=== PATIENT | female | born 1985 | race Caucasian/White ===

== ENCOUNTER 2017-03-05 17:25 | Emergency (ER) | payer OTHER ==
--- NOTE | 2017-03-05 19:03 | DIAGNOSTIC IMAGING REPORT ---
PROCEDURE: CT ABD/PELVIS WITH CONTRAST INDICATION: Abdominal pain. Hematochezia. History of IUD TECHNIQUE: 125 ml of Isovue 300 were injected intravenously and axial images were obtained of the entire abdomen and pelvis with sagittal and coronal reformations. COMPARISON: None. FINDINGS: ABDOMEN: Gallbladder, liver, spleen, pancreas, kidneys, and aorta are normal. Bowel pattern is normal, including appendix. There are mild degenerate changes of the lumbar spine. PELVIS: T-shaped IUD within the endometrial canal (satisfactory position). Uterus and adnexal structures are otherwise normal. No evidence of free fluid. IMPRESSION: 1. T-shaped IUD in satisfactory position. 2. Normal appendix. 3. Otherwise negative CT abdomen and pelvis. 4. Findings discussed with BRANDAN Hess. All CT scans at this facility use dose modulation, iterative reconstruction, and/or weight-based dosing when appropriate to reduce radiation dose to as low as reasonably achievable.
--- NOTE | 2017-03-05 20:05 | ED ORDER SUMMARY ---
..... Patient: SUSAN VARGAS OrderSheet [facility] VisitID: [id number] [address] [place] [address] 31y, F Registration Date/Time: 03/05/2017 ORDER SHEET Weight: 78.9 kg (stated) Allergies: No Known Drug Allergy GENERAL ORDERS: CT Abd/Pel w Cont (No) (pending) Urgent (18:24 03/05/2017 HBivens A.R.N.P.) (Ack 18:28 KHoerner) (18:52 KHoerner) CBC w Diff Urgent (18:03/05/2017 HBivens A.R.N.P.) (Ack 18:28 KHoerner) (18:33 EHassan R.N.) CMP Urgent (18:03/05/2017 HBivens A.R.N.P.) (Ack 18:28 KHoerner) (18:33 EHassan R.N.) UA-Culture if indicated Urgent (18:24 03/05/2017 HBivens A.R.N.P.) (Ack 18:28 KHoerner) (18:33 EHassan R.N.) Amylase Urgent (18:24 03/05/2017 HBivens A.R.N.P.) (Ack 18:28 KHoerner) (18:33 EHassan R.N.) Lipase Urgent (18:03/05/2017 HBivens A.R.N.P.) (Ack 18:28 KHoerner) (18:33 EHassan R.N.) Serum Qualitative Urgent (18:03/05/2017 HBivens A.R.N.P.) (Ack 18:28 KHoerner) (18:33 EHassan R.N.) MEDICATION ORDERS: IV FLUIDS: Toradol IV 30 mg (NOW) (18:24 03/05/2017 HBivens A.R.N.P.) (18:37 EHassan R.N.) IV Saline Lock (18:03/05/2017 HBivens A.R.N.P.) (18:33 EHassan R.N.) ORDER SHEET NOTES: [Electronically signed by Kevin Bello R.N. (20:18 03/05/2017)] [Electronically signed by Jayda Vallecillo (22:13 03/05/2017)] [Electronically locked/signed by Kevin Bello R.N. (20:18 03/05/2017)]
--- NOTE | 2017-03-05 20:05 | ED NURSING NOTES ---
Clinical Report - Nurses [facility] [address] [place] [address] 03/05/2017 17:26 Patient: SUSAN VARGAS TRIAGE Triage time 1809 PM. Acuity: LEVEL 3. Chief Complaint: ABDOMINAL PAIN. Alert. No acute distress. SEPSIS SCREEN: Sepsis Screen. Negative (no infection suspected/documented). --18:22 Jocelyn Caceres R.N. 18:09 03/05/17. BP: 145/72 (regular adult cuff) taken on the left arm, via an automated monitor, while lying. HR: 74. RR: 17. O2 saturation: 100% on room air. Temp: 98.3 F (oral). Pain level now: 6/10. --18:22 Jocelyn Caceres R.N. Weight: 78.9 kg stated. Height/Length: 66 inches Per Patient. BMI: 28.1. --18:15 Jocelyn Caceres R.N. Medications Albuterol Sulfate Inhalation, as needed. --18:24 Jocelyn Caceres R.N. Allergies No Known Drug Allergy. --18:17 Jocelyn Caceres R.N. Medication/allergy information source: the patient. --18:22 Jocelyn Caceres R.N. History Arrived by private vehicle. Historian: family. Primary physician ([facility]). ( Pt states that went to [facility] walk in due to sudden left quadrant pain, with blood in the stool noted for 2 days (not today), denies vomiting, fever, diarrhea, constipation. Clinic told her that she was positive for blood in the stool and needed to follow up with GI doctor on and a colonoscopy to follow. Pt states that she called her doctor at [facility] and was told to come to ED for further evaluation.). The patient has had abdominal pain. No nausea, vomiting, diarrhea, constipation or fever. Treatment TRANSMISSION CALIBRATION ENGINEER: None. PAST MEDICAL HX: Immunizations: up-to-date. 1. Para 1. Sexual history - sexually active. Uses an intrauterine device. SOCIAL HX: Light tobacco smoker- less than 1/2 a pack per day. Occasional alcohol use. No drug use. No recent travel. No infectious disease exposure. No known contact with a sick individual. ABUSE ASSESSMENT: No report of abuse. SELF HARM ASSESSMENT: A self harm assessment was performed. The patient answered "no" to the question "Do you have thoughts of harming or killing yourself?" and "Have you recently had thoughts about harming or killing others?". FALL RISK ASSESSMENT: Fall risk assessment completed. No fall risk identified. NUTRITIONAL RISK ASSESSMENT: The nutritional risk assessment revealed no deficiencies. FUNCTIONAL ASSESSMENT: Functional assessment: no impairments noted. LEARNING NEEDS ASSESSMENT: The learning needs assessment revealed no barriers. SKIN INTEGRITY ASSESSMENT: Skin integrity risk assessment completed. No skin integrity risk identified. --18:22 Jocelyn Caceres R.N. PROBLEMS: Asthma. Herpes Genitalis. --18:25 Jocelyn Caceres R.N. ADDITIONAL SURGERIES: no known surgeries. Interventions ID band on patient. --18:22 Jocelyn Caceres R.N. PHYSICAL ASSESSMENT Ambulatory to room. GENERAL / NEURO / PSYCH: Oriented X 4. Appears in pain. HEENT: Mucous membranes are pink. RESPIRATORY: Respirations not labored. Breath sounds within normal limits. CVS: Capillary refill less than 2 seconds. GI / : Abdominal tenderness in the right lower quadrant. Guarding and rebound tenderness present. Rebound tenderness. Bowel sounds within normal limits. No urethral discharge or vaginal discharge. Blood present in the stool, as gross blood. as per smokey point. SKIN: Skin is warm and dry. --18:23 Jocelyn Caceres R.N. NURSING PROGRESS NOTES The initial plan of care for this patient has been created This plan of care was discussed with the patient and family. Patient gowned. Warming measures: blanket applied. Reassurance given. Patient identifiers checked. Call light placed in reach. Side rails up x 1. Bed placed in lowest position. --18:25 Jocelyn Caceres R.N. 18:32 03/05/2017 Site #1 started via IV in the left antecubital space with an 20g angiocath; one attempt. Blood drawn: rainbow set. Labeled in the presence of the patient and sent to the lab. --18:32 Jocelyn Caceres R.N. 18:37 03/05/2017 Toradol IVP 30 mg given over 30 second(s) via site #1. Allergies verified and confirmed 5 rights. IV patency established. IV site checked: no pain, redness, or swelling. IV flushed thoroughly pre- and post-medication administration. IVP given by RN. --18:37 Jocelyn Caceres R.N. 20:15. The patient is calm and resting quietly. SKIN: Skin is warm and dry. Skin color within normal limits. --20:17 Kevin Bello R.N. DISPOSITION / DISCHARGE 20:10 03/05/2017 Site #1 removed upon discharge. Catheter intact. Bandage applied. --20:16 Kevin Bello R.N. Departure time: 20:17. Condition at departure: stable. No learning barriers present. Reviewed medication(s) side effects, precautions, dosing and course information. Prescription(s) given to the patient. Patient verbalized understanding. Written instructions provided in [place]. The patient was discharged home and unaccompanied at time of discharge. She left the Emergency Department ambulatory and via private vehicle. Patient driving. FALL RISK ASSESSMENT: Fall risk assessment completed. No fall risk identified. --20:17 Kevin Bello R.N. 20:12 03/05/17. BP: 138/74. HR: 83. RR: 17. O2 saturation: 97%. Pain level now: 12/28. --20:17 Kevin Bello R.N. Locked/Released at 03/05/2017 20:18 by Kevin Bello R.N.
--- NOTE | 2017-03-05 20:05 | ED CLINICAL REPORT ---
Clinical Report - Physicians/Mid Levels [facility] [address] [place] [address] 03/05/2017 17:26 Patient: SUSAN VARGAS Time Seen: 18:11; initial patient contact, initial documentation, patient care assumed. Arrived- By private vehicle. Historian- patient. HISTORY OF PRESENT ILLNESS Chief Complaint: ABDOMINAL PAIN. This started last night and is still present. At its maximum, severity described as moderate. When seen in the E.D., severity described as moderate. Modifying factors. Not worsened by anything. Not relieved by anything. It is described as "pain", sharp and cramping. No radiation. It is described as located in the right lower quadrant. No nausea, loss of appetite, vomiting or diarrhea. No recent travel. Similar symptoms previously: None. Recent medical care: The patient was seen recently in a clinic. ( went to walk in clinic yesterday for blood streaked stool, none since, has appt on Th with gi and pending colonscopy). REVIEW OF SYSTEMS No constipation, black stools, hematemesis, difficulty with urination or pain with urination. No urinary frequency, bloody stools, fever, chest pain or difficulty breathing. All systems otherwise negative, except as recorded above. PAST HISTORY See nurses notes. PROBLEMS: Asthma. Herpes Genitalis. --18:25 Jocelyn Caceres, R.N. ADDITIONAL SURGERIES: no known surgeries. SOCIAL HISTORY Light tobacco smoker. Occasional alcohol use. No drug use. No recent travel. Is a local resident. FAMILY HISTORY Negative. ADDITIONAL NOTES The nursing notes have been reviewed with agreement regarding the chief complaint, HPI, ROS, PMH and patient medications and allergies. PHYSICAL EXAM Vital Signs: 03/05/2017 18:09 BP: 145/72. HR: 74. RR: 17. O2 saturation: 100%. Temp: 98.3 F. Pain level now: 6/10. Have been reviewed as normal and appear to be correct. Appearance: Alert. Oriented X3. No acute distress. Eyes: Pupils equal, round and reactive to light. Eyes normal inspection. Neck: Normal inspection. Neck supple. CVS: Normal heart rate and rhythm. Heart sounds normal. Pulses normal. Respiratory: No respiratory distress. Breath sounds normal. Chest nontender. Abdomen: Soft. Mild tenderness in the right lower quadrant. No guarding, rebound tenderness or Pandya's, obturator or psoas sign present. Bowel sounds normal. No organomegaly. No mass. Tenderness present. Back: Normal inspection. Skin: Skin warm and dry. Normal skin color. No rash. Normal skin turgor. Extremities: Extremities exhibit normal ROM. No lower extremity edema. Neuro: Oriented X 3. No motor deficit. No sensory deficit. LABS, X-RAYS, AND EKG Abdominal CT: No acute disease. IMPRESSION: 1. T-shaped IUD in satisfactory position. 2. Normal appendix. 3. Otherwise negative CT abdomen and pelvis. 4. Findings discussed with BRANDAN Hess. All CT scans at this facility use dose modulation, iterative reconstruction, and/or weight-based dosing when appropriate to reduce radiation dose to as low as reasonably achievable. Electronically Final signed by:Robert Escobedo MD 03/05/2017 6:58:56 PM. The study was interpreted by the radiologist and discussed with the radiologist. Interpretation time: 1901. Laboratory Tests: UA-Culture if indicated: (RUTHIE: 03/05/2017 18:10) ( MsgRcvd 03/05/2017 19:22) Final results Test Result Flag Units (Reference) URINE COLOR YELLOW URINE APPEARANCE CLEAR URINE GLUCOSE NEGATIVE (NEGATIVE) URINE BILIRUBIN NEGATIVE (NEGATIVE) URINE KETONE NEGATIVE (NEGATIVE) URINE SPECIFIC GRAVITY 1.010 (1.010-1.030) URINE PH 8.5 H (5.0-8.0) URINE PROTEIN NEGATIVE (NEGATIVE) URINE UROBILINOGEN 0.2 EU/dL (0.2-1.0) URINE NITRITE NEGATIVE (NEGATIVE) URINE BLOOD NEGATIVE (NEGATIVE) URINE LEUK ESTERASE NEGATIVE (NEGATIVE) URINE RBC NONE SEEN rbc/hpf (0-1) URINE WBC RARE wbc/hpf (0-1) URINE EPITHELIAL CELLS 0-1 EPI/hpf (0-5) URINE BACTERIA TRACE (<1+) (NONE SEEN) URINE COMMENT CULT NOT INDICATED 1+ AMORPHUSURINE CULTURES ARE SET-UP BASED ON THE FOLLOWING CRITERIA:POSITIVE NITRITEPOSITIVE LEUKOCYTE ESTERASEGREATER THAN 10 WHITE BLOOD CELLSMODERATE (2+) OR GREATER BACTERIA Serum Qualitative: (RUTHIE: 03/05/2017 18:35) ( [facility] 19:06) Final results Test Result Flag Units (Reference) , SERUM NEGATIVE CBC w Diff: (RUTHIE: 03/05/2017 18:35) ( [facility] 03/05/2017 18:51) Final results Test Result Flag Units (Reference) WHITE BLOOD COUNT 11.9 H K/uL (4.5-11.5) RED BLOOD COUNT 4.92 M/uL (4.00-5.20) HEMOGLOBIN 15.1 gm/dL (12.0-16.0) HEMATOCRIT 44.7 % (36.0-46.0) MEAN CELL VOLUME 91 fL (80-100) MEAN CORPUSCULAR HGB 31 pg (26-34) MEAN CORPUSCULAR HGB CONC 34 g/dL (31-37) RED CELL DISTRIBUTION WIDTH 13.4 % (11.6-14.8) PLATELET COUNT 277 K/uL (150-400) NEUTROPHIL % 74.1 % (50-75) LYMPH % 20.0 L % (25-40) MONO % 4.7 % (3-14) EOSINOPHIL % 0.9 % (0-4) BASOPHIL % 0.3 % (0-2) CMP: (RUTHIE: 03/05/2017 18:35) ( [facility] 03/05/2017 19:10) Final results Test Result Flag Units (Reference) GLUCOSE 96 mg/dL (70-110) BUN 12 mg/dL (7-18) CREATININE 0.8 mg/dL (0.6-1.3) Estimated GFR >60 mL/min Estimated GFR- >60 mL/min Note: Persistent reduction over 3 months in eGFR<60 mL/min/1.73 m2 defines CKD. Patients with eGFR values>=60 mL/min/1.73 m2 may also have CKD if evidence ofpersistent proteinuria. Additional information may be foundat www.kidney.org. SODIUM 139 mmol/L (136-145) POTASSIUM 3.7 mmol/L (3.5-5.1) CHLORIDE 103 mmol/L (98-107) CARBON DIOXIDE 26 mmol/L (21-32) CALCIUM 8.3 L mg/dL (8.5-10.1) TOTAL PROTEIN 7.2 g/dL (6.4-8.2) ALBUMIN 3.7 g/dL (3.3-5.0) BILIRUBIN, TOTAL 0.3 mg/dL (0.0-1.0) ALKALINE PHOSPHATASE 62 U/L (46-116) AST (SGOT) 19 U/L (15-37) ALT (SGPT) 33 U/L (12-78) LIPASE 215 U/L (73-393) AMYLASE 64 U/L (25-115) . PROGRESS AND PROCEDURES Patient counseled in person regarding the patient's stable condition, test results and diagnosis. 20:02. Differential Diagnosis: I considered gastritis, gastroenteritis, peptic ulcer disease, acute appendicitis, mesenteric lymphadenitis, diverticulitis, colon cancer, ulcerative colitis, Crohn's disease, biliary colic, cholecystitis, cholelithiasis, hepatitis, pancreatitis, common bile duct obstruction, urinary tract infection, ureterolithiasis, ovarian cyst, ovarian torsion, , pelvic inflammatory disease, pelvic abscess, endometriosis and viral syndrome as a possible cause of abdominal pain in this patient. This is a partial list of diagnoses considered. Above considerations are based on history, physical exam, reassessment, laboratory data and other information. Differential diagnosis was discussed with patient. Disposition: Discharged home in good and improved condition (20:04). Condition: good and stable. CLINICAL IMPRESSION Acute right lower quadrant abdominal pain of unknown cause. INSTRUCTIONS Warnings: GENERAL WARNINGS: Return or contact your physician immediately if your condition worsens or changes unexpectedly, if not improving as expected, or if other problems arise. SPECIFICALLY, return if you develop pain in the abdomen or pelvis, fever, vomiting, the inability to keep fluids down, blood in vomitus, blood in diarrhea, fainting, lightheadedness or vaginal bleeding. Prescription Medications: Ultram 50 mg tablets: take 1-2 orally every 6 hours as needed for pain. Dispense twenty (20). No refills. Substitution is permissible. Follow-up: Follow up with your doctor in about two days as scheduled even if well. Summary of care provided to patient. Understanding of the discharge instructions verbalized by patient. (Electronically signed by Jayda Vallecillo A.R.N.P. 03/05/2017 22:13)
--- NOTE | 2017-03-05 20:05 | ED ORDER SUMMARY ---
..... Patient: SUSAN VARGAS OrderSheet [facility] VisitID: [id number] [address] [place] [address] 31y, F Registration Date/Time: 03/05/2017 ORDER SHEET Weight: 78.9 kg (stated) Allergies: No Known Drug Allergy GENERAL ORDERS: CT Abd/Pel w Cont (No) (pending) Urgent (18:24 03/05/2017 HBivens A.R.N.P.) (Ack 18:28 KHoerner) (18:52 KHoerner) CBC w Diff Urgent (18:03/05/2017 HBivens A.R.N.P.) (Ack 18:28 KHoerner) (18:33 EHassan R.N.) CMP Urgent (18:03/05/2017 HBivens A.R.N.P.) (Ack 18:28 KHoerner) (18:33 EHassan R.N.) UA-Culture if indicated Urgent (18:24 03/05/2017 HBivens A.R.N.P.) (Ack 18:28 KHoerner) (18:33 EHassan R.N.) Amylase Urgent (18:24 03/05/2017 HBivens A.R.N.P.) (Ack 18:28 KHoerner) (18:33 EHassan R.N.) Lipase Urgent (18:03/05/2017 HBivens A.R.N.P.) (Ack 18:28 KHoerner) (18:33 EHassan R.N.) Serum Qualitative Urgent (18:03/05/2017 HBivens A.R.N.P.) (Ack 18:28 KHoerner) (18:33 EHassan R.N.) MEDICATION ORDERS: IV FLUIDS: Toradol IV 30 mg (NOW) (18:24 03/05/2017 HBivens A.R.N.P.) (18:37 EHassan R.N.) IV Saline Lock (18:03/05/2017 HBivens A.R.N.P.) (18:33 EHassan R.N.) ORDER SHEET NOTES: [Electronically signed by Kevin Bello R.N. (20:18 03/05/2017)] [Electronically signed by Jayda Vallecillo (22:13 03/05/2017)] [Electronically locked/signed by Kevin Bello R.N. (20:18 03/05/2017)]
--- NOTE | 2017-03-05 20:05 | ED NURSING NOTES ---
Clinical Report - Nurses [facility] [address] [place] [address] 03/05/2017 17:26 Patient: SUSAN VARGAS TRIAGE Triage time 1809 PM. Acuity: LEVEL 3. Chief Complaint: ABDOMINAL PAIN. Alert. No acute distress. SEPSIS SCREEN: Sepsis Screen. Negative (no infection suspected/documented). --18:22 Jocelyn Caceres R.N. 18:09 03/05/17. BP: 145/72 (regular adult cuff) taken on the left arm, via an automated monitor, while lying. HR: 74. RR: 17. O2 saturation: 100% on room air. Temp: 98.3 F (oral). Pain level now: 6/10. --18:22 Jocelyn Caceres R.N. Weight: 78.9 kg stated. Height/Length: 66 inches Per Patient. BMI: 28.1. --18:15 Jocelyn Caceres R.N. Medications Albuterol Sulfate Inhalation, as needed. --18:24 Jocelyn Caceres R.N. Allergies No Known Drug Allergy. --18:17 Jocelyn Caceres R.N. Medication/allergy information source: the patient. --18:22 Jocelyn Caceres R.N. History Arrived by private vehicle. Historian: family. Primary physician ([facility]). ( Pt states that went to [facility] walk in due to sudden left quadrant pain, with blood in the stool noted for 2 days (not today), denies vomiting, fever, diarrhea, constipation. Clinic told her that she was positive for blood in the stool and needed to follow up with GI doctor on and a colonoscopy to follow. Pt states that she called her doctor at [facility] and was told to come to ED for further evaluation.). The patient has had abdominal pain. No nausea, vomiting, diarrhea, constipation or fever. Treatment DIRECTOR PRODUCT MANAGEMENT: None. PAST MEDICAL HX: Immunizations: up-to-date. 1. Para 1. Sexual history - sexually active. Uses an intrauterine device. SOCIAL HX: Light tobacco smoker- less than 1/2 a pack per day. Occasional alcohol use. No drug use. No recent travel. No infectious disease exposure. No known contact with a sick individual. ABUSE ASSESSMENT: No report of abuse. SELF HARM ASSESSMENT: A self harm assessment was performed. The patient answered "no" to the question "Do you have thoughts of harming or killing yourself?" and "Have you recently had thoughts about harming or killing others?". FALL RISK ASSESSMENT: Fall risk assessment completed. No fall risk identified. NUTRITIONAL RISK ASSESSMENT: The nutritional risk assessment revealed no deficiencies. FUNCTIONAL ASSESSMENT: Functional assessment: no impairments noted. LEARNING NEEDS ASSESSMENT: The learning needs assessment revealed no barriers. SKIN INTEGRITY ASSESSMENT: Skin integrity risk assessment completed. No skin integrity risk identified. --18:22 Jocelyn Caceres R.N. PROBLEMS: Asthma. Herpes Genitalis. --18:25 Jocelyn Caceres R.N. ADDITIONAL SURGERIES: no known surgeries. Interventions ID band on patient. --18:22 Jocelyn Caceres R.N. PHYSICAL ASSESSMENT Ambulatory to room. GENERAL / NEURO / PSYCH: Oriented X 4. Appears in pain. HEENT: Mucous membranes are pink. RESPIRATORY: Respirations not labored. Breath sounds within normal limits. CVS: Capillary refill less than 2 seconds. GI / : Abdominal tenderness in the right lower quadrant. Guarding and rebound tenderness present. Rebound tenderness. Bowel sounds within normal limits. No urethral discharge or vaginal discharge. Blood present in the stool, as gross blood. as per smokey point. SKIN: Skin is warm and dry. --18:23 Jocelyn Caceres R.N. NURSING PROGRESS NOTES The initial plan of care for this patient has been created This plan of care was discussed with the patient and family. Patient gowned. Warming measures: blanket applied. Reassurance given. Patient identifiers checked. Call light placed in reach. Side rails up x 1. Bed placed in lowest position. --18:25 Jocelyn Caceres R.N. 18:32 03/05/2017 Site #1 started via IV in the left antecubital space with an 20g angiocath; one attempt. Blood drawn: rainbow set. Labeled in the presence of the patient and sent to the lab. --18:32 Jocleyn Caceres R.N. 18:37 03/05/2017 Toradol IVP 30 mg given over 30 second(s) via site #1. Allergies verified and confirmed 5 rights. IV patency established. IV site checked: no pain, redness, or swelling. IV flushed thoroughly pre- and post-medication administration. IVP given by RN. --18:37 Jocelyn Caceres R.N. 20:15. The patient is calm and resting quietly. SKIN: Skin is warm and dry. Skin color within normal limits. --20:17 Kevin Bello R.N. DISPOSITION / DISCHARGE 20:10 03/05/2017 Site #1 removed upon discharge. Catheter intact. Bandage applied. --20:16 Kevin Bello R.N. Departure time: 20:17. Condition at departure: stable. No learning barriers present. Reviewed medication(s) side effects, precautions, dosing and course information. Prescription(s) given to the patient. Patient verbalized understanding. Written instructions provided in [place]. The patient was discharged home and unaccompanied at time of discharge. She left the Emergency Department ambulatory and via private vehicle. Patient driving. FALL RISK ASSESSMENT: Fall risk assessment completed. No fall risk identified. --20:17 Kevin Bello R.N. 20:12 03/05/17. BP: 138/74. HR: 83. RR: 17. O2 saturation: 97%. Pain level now: 12/28. --20:17 Kevin Bello R.N. Locked/Released at 03/05/2017 20:18 by Kevin Bello R.N.
--- NOTE | 2017-03-05 22:13 | ED MED RECONCILIATION SUMMARY ---
Patient: SUSAN VARGAS Medication Reconciliation Report [facility] VisitID: [id number] [address] [place] [address] 31y, F Registration Date/Time: 03/05/2017 Weight: 78.9 kg Height/Length: 66 in. BMI: 28.1 ALLERGIES: No Known Drug Allergy The patient's Home Medications are listed below: THE FOLLOWING MEDICATIONS NEED TO BE RECONCILED: Albuterol Sulfate Inhalation The source(s) of the original Home Medication information: patient The following Medications were given to the patient in the Emergency Department: Toradol [IVP] IVP 30 mg, administered: 03/05/2017 6:37:00 PM The following Medications were prescribed to the patient: Ultram 50 mg tablets: take 1-2 orally every 6 hours as needed for pain. Dispense twenty (20). No refills. Substitution is permissible. -- Jayda Vallecillo A.R.N.P.
--- NOTE | 2017-03-05 22:13 | ED MAR SUMMARY ---
..... Medication Administration Record [facility] [address] [place] [address] Patient: SUSAN VARGAS Visit ID: [id number] 31y, F Weight: 78.9 kg Height/Length: 66 in BMI: 28.1 ALLERGIES: No Known Drug Allergy Given 18:37 03/05/2017 Jocelyn Caceres R.N. Medication Administered: TORADOL [IVP], Dose: 30 mg IVP over 30 second(s), Site: #1 left AC. Medication Ordered: Toradol IV 30 mg (NOW).
--- NOTE | 2017-03-05 22:13 | ED MAR SUMMARY ---
..... Medication Administration Record [facility] [address] [place] [address] Patient: SUSAN VARGAS Visit ID: [id number] 31y, F Weight: 78.9 kg Height/Length: 66 in BMI: 28.1 ALLERGIES: No Known Drug Allergy Given 18:37 03/05/2017 Jocelyn Caceres R.N. Medication Administered: TORADOL [IVP], Dose: 30 mg IVP over 30 second(s), Site: #1 left AC. Medication Ordered: Toradol IV 30 mg (NOW).
--- NOTE | 2017-03-05 22:13 | ED MED RECONCILIATION SUMMARY ---
Patient: SUSAN VARGAS Medication Reconciliation Report [facility] VisitID: [id number] [address] [place] [address] 31y, F Registration Date/Time: 03/05/2017 Weight: 78.9 kg Height/Length: 66 in. BMI: 28.1 ALLERGIES: No Known Drug Allergy The patient's Home Medications are listed below: THE FOLLOWING MEDICATIONS NEED TO BE RECONCILED: Albuterol Sulfate Inhalation The source(s) of the original Home Medication information: patient The following Medications were given to the patient in the Emergency Department: Toradol [IVP] IVP 30 mg, administered: 03/05/2017 6:37:00 PM The following Medications were prescribed to the patient: Ultram 50 mg tablets: take 1-2 orally every 6 hours as needed for pain. Dispense twenty (20). No refills. Substitution is permissible. -- Jayda Vallecillo A.R.N.P.
--- NOTE | 2017-03-05 22:13 | ED DISCHARGE INSTRUCTIONS ---
Patient: SUSAN VARGAS General Instructions [facility] VisitID: [id number] [place] [address] 31y, F Registration Date/Time: 03/05/2017 Acute right lower quadrant abdominal pain of unknown cause. INSTRUCTIONS Warnings: GENERAL WARNINGS: Return or contact your physician immediately if your condition worsens or changes unexpectedly, if not improving as expected, or if other problems arise. SPECIFICALLY, return if you develop pain in the abdomen or pelvis, fever, vomiting, the inability to keep fluids down, blood in vomitus, blood in diarrhea, fainting, lightheadedness or vaginal bleeding. Prescription Medications: Ultram 50 mg tablets: take 1-2 orally every 6 hours as needed for pain. Dispense twenty (20). No refills. Substitution is permissible. Follow-up: Follow up with your doctor in about two days as scheduled even if well. Summary of care provided to patient. Understanding of the discharge instructions verbalized by patient. ADDITIONAL INFORMATION Abdominal Pain, Unknown Cause (Female) The exact cause of your abdominal (stomach) pain is not certain. This does not mean that this is something to worry about, or the right tests were not done. Everyone likes to know the exact cause of the problem, but sometimes with abdominal pain, there is no clear-cut cause, and this could be a good thing. The good news is that your symptoms can be treated, and you will feel better. Your condition does not seem serious now; however, sometimes the signs of a serious problem may take more time to appear. For this reason,it is important for you to watch for any new symptoms, problems,or worsening of your condition. Over the next few days, the abdominal pain may come and go, or be continuous. Other common symptoms can include nausea and vomiting. Sometimes it can be difficult to tell if you feel nauseous, you may just feel bad and not associate that feeling with nausea. Constipation, diarrhea, and a fever may go along with the pain. The pain may continue even if treated correctly over the following days. Depending on how things go, sometimes the cause can become clear and may require further or different treatment. Additional evaluations, medications, or tests may be needed. Home care Your health care provider may prescribe medications for pain, symptoms, or an infection. Follow the health care provider's instructions for taking these medications. General care Rest until your next exam. No strenuous activities. Try to find positions that ease discomfort. A small pillow placed on the abdomen may help relieve pain. Something warm on your abdomen (such as a heating pad) may help, but be careful not to burn yourself. Diet Do not force yourself to eat, especially if having cramps, vomiting, or diarrhea. Water is important so you do not get dehydrated. Soup may also be good. Sports drinks may also help, especially if they are not too acidic. Make sure you don't drink sugary drinks as this can make things worse. Take liquids in small amounts. Do not guzzle them. Caffeine sometimes makes the pain and cramping worse. Avoid dairy products if you have vomiting or diarrhea. Don't eat large amounts at a time. Wait a few minutes between bites. Eat a diet low in fiber (called a low-residue diet). Foods allowed include refined breads, white rice, fruit and vegetable juices without pulp, tender meats. These foods will pass more easily through the intestine. Avoid whole-grain foods, whole fruits and vegetables, meats, seeds and nuts, fried or fatty foods, dairy, alcohol and spicy foods until your symptoms go away. Follow-up care Follow up with your health care provider as instructed, or if your pain does not begin to improve in the next 24 hours. When to seek medical care Seek prompt medical care if any of the following occur: Pain gets worse or moves to the right lower abdomen New or worsening vomiting or diarrhea Swelling of the abdomen Unable to pass stool for more than three days Fever of 100.4F (38C) or higher, or as directed by your healthcare provider. Blood in vomit or bowel movements (dark red or black color) Jaundice (yellow color of eyes and skin) Weakness, dizziness Chest, arm, back, neck or jaw pain Unexpected vaginal bleeding or missed period Call 911 Call emergency services if any of the following occur: Trouble breathing Confusion Fainting or loss of consciousness Rapid heart rate Seizure Abdominal Pain,Possible Appendicitis [Repeat Exam, Female] Based on your visit today, the exact cause of your abdominal (stomach) pain is not certain. However, you do have some of the early signs of APPENDICITIS. Early in an appendix infection the symptoms can be similar to a simple "stomach ache" or "stomach flu". Therefore, the diagnosis can be hard to make. Since an appendix infection is a serious condition, it is important to know if this is the cause of your symptoms. WAITING for more time to pass and repeating the exam is the best way to find out whether you have appendicitis. Within the next 12-24 hours the cause of your stomach pain should become clear. It is important for you to watch for any new symptoms or worsening of your condition. (See below). Home Care: Rest until your next exam. No strenuous activities. Eat a diet low in fiber (called a low-residue diet). Foods allowed include refined breads, white rice, fruit and vegetable juices without pulp, tender meats. These foods will pass more easily through the intestine. Avoid whole-grain foods, whole fruits and vegetables, meats, seeds and nuts, fried or fatty foods, dairy, alcohol and spicy foods until your symptoms go away. In some cases, you may be asked not to eat or drink anything until you are re-examined. Return for another exam exactly as directed. Follow Up with your doctor or this facility as directed. Get Prompt Medical Attention if any of the following occur: Pain gets worse or moves to the right lower abdomen New or worsening vomiting or diarrhea Swelling of the abdomen Unable to pass stool for more than three days Fever of 100.4F (38C) or higher, or as directed by your healthcare provider Blood in vomit or bowel movements (dark red or black color) Weakness, dizziness or fainting Unexpected vaginal bleeding Tramadol Hydrochloride Oral tablet What is this medicine? TRAMADOL (TRA ma dole) is a pain reliever. It is used to treat moderate to severe pain in adults. How should I use this medicine? Take this medicine by mouth with a full glass of water. Follow the directions on the prescription label. If the medicine upsets your stomach, take it with food or milk. Do not take more medicine than you are told to take. Talk to your insurance law specialist regarding the use of this medicine in children. Special care may be needed. What side effects may I notice from receiving this medicine? Side effects that you should report to your doctor or health regular senior care provider as soon as possible: allergic reactions like skin rash, itching or hives, swelling of the face, lips, or tongue breathing difficulties, wheezing confusion itching light headedness or fainting spells redness, blistering, peeling or loosening of the skin, including inside the mouth seizures Side effects that usually do not require medical attention (report to your doctor or health regular senior care provider if they continue or are bothersome): constipation dizziness drowsiness headache nausea, vomiting What may interact with this medicine? Do not take this medicine with any of the following medications: MAOIs like Carbex, Eldepryl, Marplan, Nardil, and Parnate This medicine may also interact with the following medications: alcohol or medicines that contain alcohol antihistamines benzodiazepines bupropion carbamazepine or oxcarbazepine clozapine cyclobenzaprine digoxin furazolidone linezolid medicines for depression, anxiety, or psychotic disturbances medicines for migraine headache like almotriptan, eletriptan, frovatriptan, naratriptan, rizatriptan, sumatriptan, zolmitriptan medicines for pain like pentazocine, buprenorphine, butorphanol, meperidine, nalbuphine, and propoxyphene medicines for sleep muscle relaxants naltrexone phenobarbital phenothiazines like perphenazine, thioridazine, chlorpromazine, mesoridazine, fluphenazine, prochlorperazine, promazine, and trifluoperazine procarbazine warfarin What if I miss a dose? If you miss a dose, take it as soon as you can. If it is almost time for your next dose, take only that dose. Do not take double or extra doses. Where should I keep my medicine? Keep out of the reach of children. Store at room temperature between 15 and 30 degrees C (59 and 86 degrees F). Keep container tightly closed. Throw away any unused medicine after the expiration date. What should I tell my health care provider before I take this medicine? They need to know if you have any of these conditions: brain tumor depression drug abuse or addiction head injury if you frequently drink alcohol containing drinks kidney disease or trouble passing urine liver disease lung disease, asthma, or breathing problems seizures or epilepsy suicidal thoughts, plans, or attempt; a previous suicide attempt by you or a family member an unusual or allergic reaction to tramadol, codeine, other medicines, foods, dyes, or preservatives or trying to get breast-feeding What should I watch for while using this medicine? Tell your doctor or health regular senior care provider if your pain does not go away, if it gets worse, or if you have new or a different type of pain. You may develop tolerance to the medicine. Tolerance means that you will need a higher dose of the medicine for pain relief. Tolerance is normal and is expected if you take this medicine for a long time. Do not suddenly stop taking your medicine because you may develop a severe reaction. Your body becomes used to the medicine. This does NOT mean you are addicted. Addiction is a behavior related to getting and using a drug for a non-medical reason. If you have pain, you have a medical reason to take pain medicine. Your doctor will tell you how much medicine to take. If your doctor wants you to stop the medicine, the dose will be slowly lowered over time to avoid any side effects. You may get drowsy or dizzy. Do not drive, use machinery, or do anything that needs mental alertness until you know how this medicine affects you. Do not stand or sit up quickly, especially if you are an older patient. This reduces the risk of dizzy or fainting spells. Alcohol can increase or decrease the effects of this medicine. Avoid alcoholic drinks. You may have constipation. Try to have a bowel movement at least every 2 to 3 days. If you do not have a bowel movement for 3 days, call your doctor or health regular senior care provider. Your mouth may get dry. Chewing sugarless gum or sucking hard candy, and drinking plenty of water may help. Contact your doctor if the problem does not go away or is severe. You have been given the following additional information: Abdominal Pain, Unknown Cause, (Female) Abdominal Pain, Possible Appendicitis (Female) Tramadol Hydrochloride Oral tablet (Electronically signed by Jayda Vallecillo A.R.N.P. 03/05/2017 22:13)
== END 2017-03-05 20:17 | disposition home or self-care (01) ==
LOC: ED SRH 17:25
DX: R10.31 Right lower quadrant pain (principal); J45.909 Unspecified asthma, uncomplicated; Z79.899 Other long term (current) drug therapy; F17.290 Nicotine dependence, other tobacco product, uncomplicated
CPT/HCPCS: 90004; 90100; 92235; 92530; 95059; 98428